=== PATIENT | female | born 1945 | race Caucasian/White ===

== ENCOUNTER 2022-07-20 15:13 | Emergency (ER) | payer MEDICARE ==
[~2022-07-20] VITALS: Ht 152.4 cm; Wt 68.2 kg
[2022-07-20] MEDS ORDERED: TRANDATE (15:38)
[2022-07-20] MEDS ORDERED: LABETALOL HCL100 MG PO (15:38)
[2022-07-20] MEDS ORDERED: ATORVASTATIN CA20 MG PO (15:38)
[2022-07-20] MEDS ORDERED: PLAVIX75 MG PO (15:38)
[2022-07-20] MEDS ORDERED: BACITRACIN ZINC 0.9GM TP ONE ×2 (16:10→16:15)
== END 2022-07-20 16:14 | disposition left against medical advice (07) ==
LOC: FSED 15:23
DX: S69.92XA Unspecified injury of left wrist, hand and finger(s), initial encounter (principal)

== ENCOUNTER 2024-07-28 13:05 | Inpatient (IN) | payer MEDICARE ==
[~2024-07-28] VITALS: Ht 152.4 cm; Wt 65.3 kg
[~2024-07-28 13:05] MED LIST: ATORVASTATIN CA20 MG PO; LABETALOL HCL100 MG PO; PLAVIX75 MG PO; TRANDATE
[2024-07-28 14:18] VITALS: TEMP 98.2
[2024-07-28 14:47] LABS: BASOPHILS % 0.4 % (0.0-1.0); EOSINOPHILS % 0.4 % (0.0-6.0); LYMPHOCYTES # (AUTO) 1.1 (1.0-3.2); MEAN CORPUSCULAR HEMOGLOBIN 27.7 pg (28-32); MEAN CORPUSCULAR HGB CONC 33.3 g/dL (31-35); MONOCYTES # (AUTO) 0.8 (0.2-0.8); MONOCYTES % 9.3 % (4.4-11.3); NEUTROPHILS # (AUTO) 6.5 (2.1-6.9); NEUTROPHILS % 76.7 % (38.7-80.0); PLATELET COUNT 249 x10e3/uL (140-360); RED BLOOD COUNT 5.42 x10e6/uL (3.6-5.1); RED CELL DISTRIBUTION WIDTH 13.1 % (11.7-14.4)
[2024-07-28] MEDS: SODIUM CHLORIDE 0.9% 1000ML 1,000 ML IV STA (14:49)
[2024-07-28] MEDS: ONDANSETRON HCL INJ 2MG/ML 2ML 2 MG/ML VIAL IV STA ×2 (14:49→19:59)
[2024-07-28 15:09] LABS: ALANINE AMINOTRANSFERASE 15 IU/L (0-55); ALBUMIN 4.2 g/dL (3.5-5.0); ALBUMIN/GLOBULIN RATIO 1.3 (0.8-2.0); ALKALINE PHOSPHATASE 71 IU/L (40-150); ANION GAP 18.1 mmol/L (8-16); BILIRUBIN,TOTAL 1.1 mg/dL (0.2-1.2); BLOOD UREA NITROGEN 15 mg/dL (7-26); BUN/CREATININE RATIO 15 (6-25); CALCIUM 10.5 mg/dL (8.4-10.2); CARBON DIOXIDE 21 mmol/L (22-29); CHLORIDE 98 mmol/L (98-107); CREATINE KINASE 164 IU/L (29-168); CREATININE, SERUM 1.02 mg/dL (0.57-1.11); EST GLOMERULAR FILTRATION RATE 57 ML/MIN (>=60); GLUCOSE 120 mg/dL (74-118); LIPASE 29 U/L (8-78); POTASSIUM 4.1 mmol/L (3.5-5.1); SODIUM 133 mmol/L (136-145); TOTAL PROTEIN 7.4 g/dL (6.5-8.1)
[2024-07-28 15:19] LABS: TROPONIN I < 0.001 ng/mL (0-0.300)
[2024-07-28] MEDS ORDERED: IOPAMIDOL 370 MG/ML 100 ML INFUS..BTL INJ ONE (15:20)
[2024-07-28] MEDS: SODIUM CHLORIDE 0.9% 1000ML 1,000 ML IV SCH (19:58)
[2024-07-28] MEDS: BENZOCAINE/TETRACAINE/BUTAMBEN AERO SPRAY 56 GM CAN TOP ONE (19:59)
[2024-07-28 22:00] VITALS: PULSE 96; RESP 20
[2024-07-28 23:30] VITALS: BP 141/70; PULSE 100; RESP 22; TEMP 98.3; O2SAT 97
[2024-07-29] VITALS (8 sets, daily range): BP systolic 94–141; BP diastolic 20–74; PULSE 93–109; RESP 17–22; TEMP 97.6–98.8; O2SAT 95–100
[2024-07-29] MEDS: ONDANSETRON HCL INJ 2MG/ML 2ML 2 MG/ML VIAL IV PRN (00:26)
[2024-07-29] MEDS: Morphine 2mg Syringe 2 MG/ML SYR IV PRN (02:30)
[2024-07-29] MEDS ORDERED: AMLODIPINE BESYL5 MG PO (03:40)
[2024-07-29] MEDS ORDERED: PANTOPRAZOLE SO40 MG PO (03:46)
[2024-07-29] MEDS ORDERED: ASPIRIN CHEW81 MG PO (03:46)
[2024-07-29] MEDS ORDERED: ZOLPIDEM TARTRAT5 MG PO (03:51)
[2024-07-29 09:08] LABS: BASOPHILS % 0.3 % (0.0-1.0); EOSINOPHILS % 0.6 % (0.0-6.0); HEMOGLOBIN 13.7 g/dL (12.0-16.0); LYMPHOCYTES # (AUTO) 0.7 (1.0-3.2); LYMPHOCYTES % 10.7 % (18.0-39.1); MEAN CORPUSCULAR HEMOGLOBIN 28.1 pg (28-32); MEAN CORPUSCULAR HGB CONC 32.6 g/dL (31-35); MEAN CORPUSCULAR VOLUME 86.1 fL (81-99); MONOCYTES # (AUTO) 0.8 (0.2-0.8); MONOCYTES % 12.9 % (4.4-11.3); NEUTROPHILS # (AUTO) 4.6 (2.1-6.9); NEUTROPHILS % 75.2 % (38.7-80.0); PLATELET COUNT 208 x10e3/uL (140-360); RED BLOOD COUNT 4.88 x10e6/uL (3.6-5.1); RED CELL DISTRIBUTION WIDTH 13.1 % (11.7-14.4); WHITE BLOOD COUNT 6.18 x10e3/uL (4.8-10.8)
[2024-07-29 09:35] LABS: INR 0.99; PROTHROMBIN TIME 13.7 seconds (11.9-14.5)
[2024-07-29 09:50] LABS: ALBUMIN 3.4 g/dL (3.5-5.0); ALBUMIN/GLOBULIN RATIO 1.5 (0.8-2.0); CREATININE, SERUM 0.87 mg/dL (0.57-1.11); TOTAL PROTEIN 5.7 g/dL (6.5-8.1)
[2024-07-30] VITALS (7 sets, daily range): BP systolic 120–146; BP diastolic 54–65; PULSE 80–97; RESP 18–20; TEMP 97.8–98.4; O2SAT 95–100
[2024-07-30] MEDS: METOPROLOL TARTRATE INJ 1 MG/ML VIAL IV SCH (05:07)
[2024-07-30] MEDS: LABETALOL HCL 100 MG TAB PO SCH (16:59)
[2024-07-30 19:32] LABS: CLARITY,URINE CLEAR (CLEAR); COLOR,URINE YELLOW (YELLOW)
[2024-07-30 19:33] LABS: BILIRUBIN,URINE NEGATIVE (NEGATIVE); GLUCOSE, URINE NEGATIVE (NEGATIVE); KETONES,URINE NEGATIVE (NEGATIVE); LEUKOCYTE ESTERASE ,URINE NEGATIVE (NEGATIVE); NITRITE,URINE NEGATIVE (NEGATIVE); PH,URINE 6.5 (5 - 7); PROTEIN,URINE DIPSTICK NEGATIVE (NEGATIVE); URINE UROBILINOGEN 0.2 mg/dL (0.2 - 1)
[2024-07-30 19:51] LABS: BACTERIA,URINE FEW /HPF; EPITHELIAL CELLS,URINE FEW /LPF; RBC,URINE 0-5 /HPF (0-5); TRANSITIONAL EPI CELLS,URINE FEW; WBC,URINE (MAN) 0-5 /HPF (0-5)
[2024-07-30] MEDS: ATORVASTATIN 20 MG TAB PO SCH (20:53)
[2024-07-31] VITALS (8 sets, daily range): BP systolic 122–148; BP diastolic 49–77; PULSE 78–91; RESP 16–19; TEMP 97.8–98.4; O2SAT 99–100
[2024-07-31 06:36] LABS: BASOPHILS % 0.3 % (0.0-1.0); EOSINOPHILS # (AUTO) 0.1 (0.0-0.4); EOSINOPHILS % 3.7 % (0.0-6.0); HEMATOCRIT 34.3 % (34.2-44.1); HEMOGLOBIN 11.4 g/dL (12.0-16.0); LYMPHOCYTES # (AUTO) 0.9 (1.0-3.2); LYMPHOCYTES % 28.4 % (18.0-39.1); MEAN CORPUSCULAR HEMOGLOBIN 28.1 pg (28-32); MEAN CORPUSCULAR HGB CONC 33.2 g/dL (31-35); MEAN CORPUSCULAR VOLUME 84.7 fL (81-99); MONOCYTES # (AUTO) 0.4 (0.2-0.8); MONOCYTES % 12.5 % (4.4-11.3); NEUTROPHILS # (AUTO) 1.8 (2.1-6.9); NEUTROPHILS % 54.8 % (38.7-80.0); PLATELET COUNT 169 x10e3/uL (140-360); RED BLOOD COUNT 4.05 x10e6/uL (3.6-5.1); RED CELL DISTRIBUTION WIDTH 12.8 % (11.7-14.4); WHITE BLOOD COUNT 3.27 x10e3/uL (4.8-10.8)
[2024-07-31 06:52] LABS: ANION GAP 13.4 mmol/L (8-16); CALCIUM 8.4 mg/dL (8.4-10.2); CREATININE, SERUM 0.84 mg/dL (0.57-1.11)
[2024-07-31 06:57] LABS: POTASSIUM 3.4 mmol/L (3.5-5.1)
[2024-07-31] MEDS ORDERED: ASPIRIN 81 MG CHEW TAB PO SCH (09:00)
[2024-07-31] MEDS ORDERED: CLOPIDOGREL BISULFATE 75 MG TAB PO SCH (09:00)
[2024-07-31] MEDS: PANTOPRAZOLE SOD 40 MG TABEC PO SCH (16:03)
[2024-08-01 00:09] VITALS: BP 135/65; PULSE 85; RESP 18; TEMP 97.8; O2SAT 97
[2024-08-01 07:16] LABS: BASOPHILS % 0.2 % (0.0-1.0); EOSINOPHILS # (AUTO) 0.1 (0.0-0.4); EOSINOPHILS % 2.9 % (0.0-6.0); HEMATOCRIT 37.1 % (34.2-44.1); HEMOGLOBIN 12.1 g/dL (12.0-16.0); LYMPHOCYTES # (AUTO) 1.1 (1.0-3.2); LYMPHOCYTES % 27.7 % (18.0-39.1); MEAN CORPUSCULAR HEMOGLOBIN 27.9 pg (28-32); MEAN CORPUSCULAR HGB CONC 32.6 g/dL (31-35); MEAN CORPUSCULAR VOLUME 85.7 fL (81-99); MONOCYTES # (AUTO) 0.5 (0.2-0.8); MONOCYTES % 11.8 % (4.4-11.3); NEUTROPHILS # (AUTO) 2.3 (2.1-6.9); NEUTROPHILS % 56.9 % (38.7-80.0); PLATELET COUNT 193 x10e3/uL (140-360); RED BLOOD COUNT 4.33 x10e6/uL (3.6-5.1); RED CELL DISTRIBUTION WIDTH 12.7 % (11.7-14.4); WHITE BLOOD COUNT 4.08 x10e3/uL (4.8-10.8)
[2024-08-01 07:44] LABS: ANION GAP 14.3 mmol/L (8-16); CALCIUM 9.2 mg/dL (8.4-10.2); CREATININE, SERUM 0.81 mg/dL (0.57-1.11)
[2024-08-01 07:53] LABS: POTASSIUM 3.3 mmol/L (3.5-5.1)
[2024-08-01 08:26] VITALS: BP 128/66; PULSE 88; RESP 20; TEMP 97.7; O2SAT 100
[2024-08-01 13:24] VITALS: BP 137/62; PULSE 78; RESP 20; TEMP 98; O2SAT 98
== END 2024-08-01 13:42 | disposition home or self-care (01) | DRG 390 ==
LOC: ER 14:27 → ERHOLD 17:46 → MED/SURG3 22:48
PROVIDERS: ADMIT Internal Medicine; ATTEND Internal Medicine
DX: K56.609 Unspecified intestinal obstruction, unspecified as to partial versus complete obstruction (principal); R11.0 Nausea; I10 Essential (primary) hypertension; R00.0 Tachycardia, unspecified; E78.5 Hyperlipidemia, unspecified; K59.00 Constipation, unspecified; Z79.02 Long term (current) use of antithrombotics/antiplatelets; Z79.82 Long term (current) use of aspirin; Z95.3 Presence of xenogenic heart valve; Z90.49 Acquired absence of other specified parts of digestive tract; Z85.3 Personal history of malignant neoplasm of breast
CPT/HCPCS: 36415; 74018; 74022; 74177; 80048; 80053; 81001; 82550; 83690; 83735; 84484; 85025; 85610; 85730; 93005; 94760; 99284; J2270; J2405; J2470; J2543; J7030; Q9967